=== PATIENT | female | born 1945 | race Caucasian/White ===

== ENCOUNTER 2021-01-23 21:59 | Observation (INO) | payer MEDICARE ==
[~2021-01-23] VITALS: Ht 162.6 cm; Wt 61.7 kg
[~2021-01-23 21:59] MED LIST: ASPI-485 PO; DILT30TA26 PO; ESOM20CA PO; INFL100V IV; METH2.5T PO
[2021-01-23 22:24] VITALS: BP 134/86
[2021-01-23 22:31] LABS: BASOPHIL # 0.1 10^3/uL (0.0-0.1); BASOPHIL % 1.1 % (0.0-0.2); EOSINOPHIL # 0.1 10^3/uL (0.0-0.2); EOSINOPHIL % 1.3 % (0.0-5.0); LYMPHOCYTES # 2.75 10^3/uL1 (1.0-4.8); LYMPHOCYTES % 49.5 % (24.0-44.0); MEAN CORP HGB 29.9 pg (26-34); MONOCYTES # 0.7 10^3/uL (0.3-0.8); MONOCYTES % 12.1 % (5.0-12.0); RED CELL DISTRIBUTION WIDTH 12.4 % (11.5-14.5)
[2021-01-23 22:32] LABS: PLATELET COUNT 56 10^3/uL (150-400)
--- NOTE | 2021-01-23 22:35 | PCM.EKG ---
[facility] Test Date: 2021-01-23 Test Time: 22:30:01 Pat Name: TOM COLE Department: Room: 340 Gender: F Mix Maker: DHRUV : [id number] Requested By: VIRGILIO DELGADILLO Order Number: [id number] Reading MD: Vigrilio DELGADILLO Measurements Intervals [place] Rate: 140 P: -80 NH: 96 QRS: 72 QRSD: 73 T: 266 QT: 305 QTc: 466 Interpretive Statements Sinus or ectopic atrial tachycardia Low voltage, precordial leads Repolarization abnormality, prob rate related Compared to ECG 12/22/2020 09:46:08 Early repolarization now present Sinus rhythm no longer present Atrial premature complex(es) no longer present Electronically Signed On 01-24-2021 10:32:19 CDT by Virgilio DELGADILLO Please click the below link to view image of tracing.
[2021-01-23] MEDS ORDERED: LANOXIN IV STA (22:41)
[2021-01-23] MEDS ORDERED: CARDIZEM IV STA (22:41)
[2021-01-23] MEDS ORDERED: CARDIZEM IV ONE (22:42)
[2021-01-23] MEDS ORDERED: LANOXIN ONE (22:42)
[2021-01-23 22:45] VITALS: BP 151/90
[2021-01-23 22:48] VITALS: BP 119/50
[2021-01-23 22:51] VITALS: BP 100/76
[2021-01-23] MEDS ORDERED: NS 1000ML 1,000 ML ONE (22:52)
[2021-01-23 23:01] VITALS: BP 133/57
--- NOTE | 2021-01-23 23:01 | ER.PDOC ---
General Chief Complaint: Palpitations Stated Complaint: RACING HEART RATE Time seen by MD: 23:00 Source: patient Exam Limitations: no limitations History of Present Illness Initial Comments Palpitations this evening. Patient felt her heart rate running fast. She has A. fib and was admitted last month for A. fib with RVR. She currently takes diltiazem 30 mg 3 times a day. No chest pain or shortness of breath. No other symptoms. No fever or chills. Timing/Duration: 1 hour Quality: fast Activities at Onset: none Associated Symptoms: denies symptoms Prior symptoms/Treatment: Similar symptoms previous, Recenly Seen, Treated by Doctor, Recently Hospitalized Allergies: Coded Allergies: Penicillins (Unverified Allergy, Unknown, ITCHING, RASH, 06/18/15) Home Meds Active Scripts Diltiazem Hcl (CARDIZEM) 30 Mg Tablet, 30 MG PO TID for 30 Days, #90 TAB Prov:YADY SHEN MD 12/22/20 Reported Medications Methotrexate Sodium (METHOTREXATE) 2.5 Mg Tablet, 20 MG PO ONCE WEEKLY, TABLET 06/18/15 Infliximab (REMICADE) 100 Mg Vial, 100 MG IV EVERY 2 MONTHS, VIAL 06/18/15 Esomeprazole Magnesium (NEXIUM) 20 Mg Capsule.dr, 40 MG PO DAILY 06/18/15 Aspirin (ASPIR 81) 81 Mg Tablet.dr, 162 MG PO DAILY 06/18/15 Past Medical History Medical History: arrhythmia, cardiac problems, GERD, other Surgical History: no surgical history Family History Significant Family History: no pertinent family hx Social History Smoking: non-smoker Alcohol Use: none Drug Use: none Constitutional: no symptoms reported EENTM: no symptoms reported Respiratory: no symptoms reported Cardiovascular: see HPI Gastrointestinal: no symptoms reported Genitourinary: no symptoms reported All Other Systems: Reviewed and Negative Physical Exam General Appearance: No Apparent Distress, WD/WN Neck: Non-Tender, Full Range of Motion, Supple, Normal Inspection Respiratory: chest non-tender, lungs clear, normal breath sounds, no respiratory distress, no accessory muscle use Cardiovascular: Normal Peripheral Pulses, No Edema, No Gallop, No JVD, No Murmur, Tachycardia, Irregularly Irregular Gastrointestinal: Normal Bowel Sounds, No Organomegaly, No Pulsatile Mass, Non Tender, Soft Extremities: Normal Range of Motion, Non-Tender, Normal Inspection, No Pedal Edema, No Calf Tenderness, Normal Capillary Refill Neurologic/Psychiatric: mental health case manager II-XII NML as Tested, No Motor/Sensory Deficits, Alert, Normal Mood/Affect, Oriented x 3 Skin: Normal Color, Warm/Dry Results/Orders Results/Orders Orders - VIRGILIO DELGADILLO MD Cbc With Auto Diff (01/23/21 22:15) Comprehensive Metabolic Panel (01/23/21 22:15) Creatine Kinase (01/23/21 22:15) Creatine Kinase Mb (01/23/21 22:15) Troponin I (01/23/21 22:15) Probnp B-Type High Density Press Laborer (01/23/21 22:15) PT (01/23/21 22:15) Partial Thromboplastin Time. (01/23/21 22:15) Xr Chest 1v (01/23/21 22:15) Ekg-Routine (01/23/21 22:15) Diltiazem Hcl (Cardizem) (01/23/21 22:41) Digoxin (Lanoxin) (01/23/21 22:41) Digoxin (Lanoxin) (01/23/21 22:42) Diltiazem Hcl (Cardizem) (01/23/21 22:42) 0.9 % Sodium Chloride (Ns 1000ml) (01/23/21 22:52) Vital Signs Date Time Temp Pulse Resp B/P (MAP) Pulse Ox O2 Delivery O2 Flow Rate FiO2 01/23/21 22:45 143 01/23/21 22:24 98.7 143 18 134/86 (102) 93 Room Air 01/23/21 22:24 98.7 143 18 93 01/23/21 22:24 98.7 143 18 Administered Medications Medications (Trade) Dose Ordered Sig/Rosa Route PRN Reason Start Time Stop Time Status Last Admin Dose Admin Diltiazem HCl (Cardizem) 20 mg STAT STAT IV 01/23/21 22:41 01/23/21 22:42 DC 01/23/21 22:45 20 MG Laboratory Tests Test 01/23/21 22:20 White Blood Count 5.6 10^3/uL (4.5-11.0) Red Blood Count 4.55 10^6/uL (4.00-5.20) Hemoglobin 13.6 g/dL (12.0-15.0) Hematocrit 41.2 % (36.0-46.0) Mean Corpuscular Volume 90.5 fL (78-100) Mean Corpuscular Hemoglobin 29.9 pg (26-34) Mean Corpuscular Hemoglobin Concent 33.0 g/dL (33-36.5) Red Cell Distribution Width 12.4 % (11.5-14.5) Platelet Count 56 10^3/uL (150-400) L Neutrophils (%) (Auto) 36.0 % (41.0-85.0) L Lymphocytes (%) (Auto) 49.5 % (24.0-44.0) H Monocytes (%) (Auto) 12.1 % (5.0-12.0) H Neutrophils # (Auto) 2.0 10^3/uL (1.8-7.7) Lymphocytes # (Auto) 2.75 10^3/uL1 (1.0-4.8) Monocytes # (Auto) 0.7 10^3/uL (0.3-0.8) Absolute Immature Granulocyte (auto 0 10^3 u/L (0-2) Absolute Eosinophils (auto) 0.1 10^3/uL (0.0-0.2) Immature Granulocytes % 0.00 % (0.00-0.50) Eosinophils % 1.3 % (0.0-5.0) Basophils % 1.1 % (0.0-0.2) H Basophils # 0.1 10^3/uL (0.0-0.1) Prothrombin Time 10.8 SEC (9.6-12.0) Prothrombin Time INR (Non-Therap) 1.0 Activated Partial Thromboplast Time 21.5 SEC (24.67-30.72) Progress Progress Patient given 20 mg of Cardizem and 0.25 digoxin both IV and her heart rate came down in the 70s and 80s. It will occasionally go up to low 100s. She was observed overnight and reevaluated in the morning and possibly go home. EKG/XRAY/CT/US EKG: no ST T wave changes EKG Comments: HR 140, A fib with RVR XRAY: chest (No active disease) ER DEPART Departure Time of Disposition: 23:54 Disposition: 01 HOME / SELF CARE / HOMELESS Impression: Primary Impression: Atrial fibrillation with RVR Additional Impression: Atrial fibrillation/flutter Condition: Improved Referrals: LIDIA LARES NEGOTIATIONS DIRECTOR (PCP) PRIMARY CARE PROVIDER Comments Admitted to Dr. Richter Duration or Time Spent with Pa: 45 min Critical Care Note Total Time (mins): 45 Problem Qualifiers VIRGILIO DELGADILLO MD Jan 23, 2021 23:01
[2021-01-23] MEDS ORDERED: NS 1000ML 1,000 ML IV STA (23:03)
--- NOTE | 2021-01-23 23:14 | DIREP ---
PROCEDURE:CHEST 1 VIEW COMPARISON:[facility], CR, XRAY CHEST SINGLE VW, 12/21/2020, 07:28 PM. INDICATIONS:Palpitations FINDINGS: LUNGS/PLEURA:No significant pulmonary parenchymal abnormalities. No effusions. VASCULATURE:Normal. Unremarkable pulmonary vasculature. CARDIAC:Normal. No cardiac silhouette abnormality or cardiomegaly. MEDIASTINUM:Normal. No visible mass or adenopathy. BONES:Normal. No fracture or visible bony lesion. OTHER:Negative. CONCLUSION:Normal examination. Dictated by: Jesus David MD on 01/23/2021 at 11:12 PM
[2021-01-23 23:15] LABS: ALANINE AMINOTRANSFERASE(ML) 22 U/L (12-78); ALKALINE PHOSPHATASE 85 U/L (50-136); ASPARTATE AMINO TRANSFERASE 22 U/L (0-35); CALCIUM 9.7 mg/dL (8.4-10.5); CARBON DIOXIDE 26.8 mmol/L (20.0-32); GLUCOSE 125 mg/dL (70-110)
[2021-01-24] MEDS ORDERED: ABAT250V2 IV (00:02)
[2021-01-24 00:36] VITALS: BP 128/92
[2021-01-24 03:58] VITALS: BP 123/77
--- NOTE | 2021-01-24 07:00 | PCM.EKG ---
[facility] Test Date: 2021-01-24 Test Time: 06:58:34 Pat Name: TOM COLE Department: Room: 340 A Gender: F Brand Advocate: EMERSON : 1945 Requested By: YI WATSON Order Number: [id number] Reading MD: Measurements Intervals [place] Rate: 56 P: 79 NH: 163 QRS: 51 QRSD: 97 T: 18 QT: 415 QTc: 401 Interpretive Statements Sinus rhythm Low voltage, precordial leads Compared to ECG 01/23/2021 22:30:01 Early repolarization no longer present Please click the below link to view image of tracing.
[2021-01-24 07:56] VITALS: BP 127/76
--- NOTE | 2021-01-24 08:56 | PCM.HP ---
HISTORY & PHYSICAL HISTORY & PHYSICAL DATE OF ADMISSION: January 23, 2021 CHIEF COMPLAINT: Increase heart rate During blood pressure measurement At home HISTORY OF PRESENT ILLNESS: 75-year-old female with previous history of atrial fibrillation rheumatoid arthritis thrombocytopenia was apparently in her usual health when she asked routine she was checking her blood pressure with her home BP instrument and found to have her heart rate was 144 therefore came to the ER yuri adames denied any dizziness lightheadedness chest pain but had mild shortness of breath and in the ER patient was found to have elevated heart rate was given IV Cardizem and digoxin patient symptoms resolved and the patient was admitted for overnight observation patient claims that he never noticed this found before but she is remained asymptomatic except mild shortness of breath during tachycardia denies any headache nausea vomiting lateralizing weakness sore throat cough wheezing denies any chest pain palpitation denies any abdominal pain no change in bowel habit no dysuria hematuria fever chills or rigors no weakness of the limbs ALLERGIES: Penicillin CURRENT MEDICATIONS: Aspirin 162 mg Cardizem 30 mg 3 times a day Orencia IV injection 250 mg every month PAST MEDICAL HISTORY: Rheumatoid arthritis, thrombocytopenia, atrial fibrillation, cataract extraction and lens implantation SOCIAL HISTORY: Denies smoking alcohol occasionally and exercise regularly FAMILY HISTORY: Mother had Alzheimer disease and father had prostate cancer REVIEW OF SYSTEMS: Gradually gained about 10 pounds over 1 year, no headache no blurry vision no chest pain shortness of breath was mild during tachycardia and no effort angina or effort dyspnea no change in appetite or bowel habits no urinary symptoms no fever chills or rigors no lateralizing weakness all system reviewed and negative except mentioned above VITAL SIGNS: Vital Signs Date Time Temp Pulse Resp B/P (MAP) Pulse Ox O2 Delivery O2 Flow Rate FiO2 01/24/21 07:56 97.6 62 19 127/76 (93) 95 01/24/21 03:58 98.7 85 18 123/77 (92) 94 01/24/21 01:08 Room Air 01/24/21 00:36 98.1 116 18 128/92 (104) 96 Room Air 01/23/21 23:01 87 18 133/57 (82) 96 Room Air 01/23/21 22:51 90 18 100/76 (84) 95 Room Air 01/23/21 22:48 103 18 119/50 (73) 96 Room Air 01/23/21 22:45 98.7 143 18 151/90 (110) 93 Room Air 01/23/21 22:45 143 01/23/21 22:24 98.7 143 18 134/86 (102) 93 Room Air 01/23/21 22:24 98.7 143 18 93 01/23/21 22:24 98.7 143 18 PHYSICAL EXAMINATION: General: Awake alert oriented no acute distress HEENT: Pupil round react light mucous membrane is moist anicteric sclera neck supple no JVD no carotid bruit noted Lungs: Air entry symmetrical no rails rhonchi or wheezes heard Heart: Regular rate and rhythm no murmur or gallop noted Abdomen soft not distended no guarding no organomegaly no masses felt Extremities: Moves all 4 limbs muscle power 5/5 in all 4 limbs WARP DYEING VAT TENDER cranial nerves grossly intact LABORATORY DATA: Laboratory Tests Test 01/23/21 22:20 White Blood Count 5.6 10^3/uL (4.5-11.0) Red Blood Count 4.55 10^6/uL (4.00-5.20) Hemoglobin 13.6 g/dL (12.0-15.0) Hematocrit 41.2 % (36.0-46.0) Mean Corpuscular Volume 90.5 fL (78-100) Mean Corpuscular Hemoglobin 29.9 pg (26-34) Mean Corpuscular Hemoglobin Concent 33.0 g/dL (33-36.5) Red Cell Distribution Width 12.4 % (11.5-14.5) Platelet Count 56 10^3/uL (150-400) Neutrophils (%) (Auto) 36.0 % (41.0-85.0) Lymphocytes (%) (Auto) 49.5 % (24.0-44.0) Monocytes (%) (Auto) 12.1 % (5.0-12.0) Neutrophils # (Auto) 2.0 10^3/uL (1.8-7.7) Lymphocytes # (Auto) 2.75 10^3/uL1 (1.0-4.8) Monocytes # (Auto) 0.7 10^3/uL (0.3-0.8) Absolute Immature Granulocyte (auto 0 10^3 u/L (0-2) Absolute Eosinophils (auto) 0.1 10^3/uL (0.0-0.2) Immature Granulocytes % 0.00 % (0.00-0.50) Eosinophils % 1.3 % (0.0-5.0) Basophils % 1.1 % (0.0-0.2) Basophils # 0.1 10^3/uL (0.0-0.1) Prothrombin Time 10.8 SEC (9.6-12.0) Prothrombin Time INR (Non-Therap) 1.0 Activated Partial Thromboplast Time 21.5 SEC (24.67-30.72) Sodium Level 146 mmol/L (132-145) Potassium Level 3.4 mmol/L (3.6-5.2) Chloride Level 108.0 mmol/L (96-109) Carbon Dioxide Level 26.8 mmol/L (20.0-32) Anion Gap 14.6 Blood Urea Nitrogen 14 mg/dL (7-18) Creatinine 1.02 mg/dL (0.59-1.40) Estimated GFR () 64.1 (>/=60) Est GFR (CKD-EPI)(Non-Afr Mauritanian) 53.0 (>/=60) BUN/Creatinine Ratio 13.0 Glucose Level 125 mg/dL (70-110) Calcium Level 9.7 mg/dL (8.4-10.5) Total Bilirubin 0.8 mg/dL (0.2-1.0) Aspartate Amino Transf (AST/SGOT) 22 U/L (0-35) Alanine Aminotransferase (ALT/SGPT) 22 U/L (12-78) Alkaline Phosphatase 85 U/L (50-136) Total Creatine Kinase 113 U/L (26-192) Creatine Kinase MB 1.2 ng/mL (0.5-3.6) Troponin I < 0.02 ng/mL (0.00-0.05) Pro-B-Type Natriuretic Peptide 393 pg/mL (0-125) Total Protein 7.4 g/dL (6.4-8.2) Albumin 3.9 g/dL (3.4-5.0) Globulin 3.5 Albumin/Globulin Ratio 1.114 IMAGING: PROCEDURE:CHEST 1 VIEW COMPARISON:[facility], CR, XRAY CHEST SINGLE VW, 12/21/2020, 07:28 PM. INDICATIONS:Palpitations FINDINGS: LUNGS/PLEURA:No significant pulmonary parenchymal abnormalities. No effusions. VASCULATURE:Normal. Unremarkable pulmonary vasculature. CARDIAC:Normal. No cardiac silhouette abnormality or cardiomegaly. MEDIASTINUM:Normal. No visible mass or adenopathy. BONES:Normal. No fracture or visible bony lesion. OTHER:Negative. CONCLUSION:Normal examination. Dictated by: Jesus David MD on 01/23/2021 at 11:12 PM SUMMARY: 75-year-old history female with previous history of atrial fibrillation rheumatoid arthritis and thrombocytopenia came to the ER with a complaint of elevated pulse rate found to have atrial fibrillation with RVR was given IV diltiazem 20 mg and started on digoxin and patient heart rate was well controlled was admitted for overnight observation patient remained stable, we will consult ammonium nitrate neutralizer for consideration of starting patient on controlled release Cardizem 120 mg daily and her chads vascular score is 2 to obtain recommendation regarding anticoagulation and once treatment is finalized patient can be discharged today ASSESSMENT/PLAN: A. fib with RVR, Chads vascular score is 2 Rheumatoid arthritis Thrombocytopenia Hypokalemia Plan: Replace potassium, check magnesium levelConsult ammonium nitrate neutralizer Cardizem CD 120 mg daily if okay with ammonium nitrate neutralizer and discharge planning after ammonium nitrate neutralizer recommendation YI WATSON MD Jan 24, 2021 08:56
[2021-01-24] MEDS ORDERED: EFFER-K 10 MEQ TABLET EFF PO SCH (09:00)
[2021-01-24 11:40] VITALS: BP 124/63
[2021-01-24 15:19] VITALS: BP 128/67
--- NOTE | 2021-01-24 16:19 | PRM.CONS ---
History of Present Illness Reason for Consultation: Atrial fibrillation History of Present Illness This is a 75-year-old female who presented to the emergency room after noticing on her blood pressure machine that her heart rate was high. She denied any symptoms other than shortness of breath.Last month she was hospitalized for atrial fibrillation with rapid ventricular response. Past Medical History Musculoskeletal: Other Past Social History Smoke: No Alcohol: none Travel Hx EBOLA RISK:Travel to/contact w: No Review of Systems Allergies: Coded Allergies: Penicillins (Unverified Allergy, Unknown, ITCHING, RASH, 06/18/15) Scheduled Abatacept/Maltose (Orencia 250 Mg Vial), 250 MG IV OT, (Reported) Aspirin (Aspir 81), 162 MG PO DAILY, (Reported) Diltiazem Hcl (Cardizem), 30 MG PO TID Discontinued Medications Esomeprazole Magnesium (Nexium), 40 MG PO DAILY, (Reported) Discontinued Reason: No Longer Taking Infliximab (Remicade), 100 MG IV EVERY 2 MONTHS, (Reported) Discontinued Reason: No Longer Taking Methotrexate Sodium (Methotrexate), 20 MG PO ONCE WEEKLY, (Reported) Discontinued Reason: No Longer Taking VTE VTE Risk Total Score: 2 VTE Risk Score VTE Risk: Score 0-1 = Low Risk (Aggressive mobilization; early ambulation; no VTE prophylaxis required) Score 2: Moderate Risk (Intermittent/Pneumatic Compression Device OR Lovenox/Heparin/Coumadin) Score 3-4: High Risk (Intermittent/Pneumatic Compression Device AND Lovenox/Heparin/Coumadin) Score > or =5: Highest Risk (Intermittent/Pneumatic Compression Device AND Lovenox/Heparin/Coumadin) Antico:Hep/LMWH/Coum/Xarelto: No Mechanical device ordered: Yes Reasons not ordering prophylax: Plt cnt below ref range VTE VTE Present on Admission: No Currently receiving anticoagul: No VTE Risk Total Score: 2 Antico:Hep/LMWH/Coum/Xarelto: No Mechanical device ordered: Yes Exam Vital Signs Vital Signs Date Time Temp Pulse Resp B/P (MAP) Pulse Ox O2 Delivery O2 Flow Rate FiO2 01/24/21 15:19 98.1 63 18 128/67 (87) 94 01/24/21 14:31 Room Air NIMO FARLEY APRN FOOD ADVISER Jan 24, 2021 16:19
--- NOTE | 2021-01-24 16:28 | PRM.CONS ---
History of Present Illness Reason for Consultation: atrial fibrillation History of Present Illness This is a 75-year-old female who presented to the emergency room after noticing on her blood pressure machine that her heart rate was high. Last month she was newly diagnosed with atrial fibrillation and at the time also had rapid ventricular response. She has been taking Cardizem 30 mg 3 times daily but does admit to forgetting the noon dose often. She denied any symptoms other than mild shortness of breath with this episode. Initial EKG this visit showed Atrial fibrillation with a rate of 140.She was given IV Cardizem and Digoxin. She has since converted back to sinus rhythm with a rate of 60 as of this morning. Cardiology service consult was placed for evaluation. She currently denies any chest pain, shortness of breath or palpitations. Past Medical History Cardiovascular: AFIB, Other (chronic thrombocytopenia ) Musculoskeletal: Other (rheumatoid arthritis ) Past Surgical History: No pertinent hx Past Social History Smoke: No Alcohol: none Lives: with Family Domestic Violence: Neg Travel Hx EBOLA RISK:Travel to/contact w: No Is pt experiencing any Ebola s: No Review of Systems Allergies: Coded Allergies: Penicillins (Unverified Allergy, Unknown, ITCHING, RASH, 06/18/15) Scheduled Abatacept/Maltose (Orencia 250 Mg Vial), 250 MG IV OT, (Reported) Aspirin (Aspir 81), 162 MG PO DAILY, (Reported) Diltiazem Hcl (Cardizem), 60 MG PO BID Discontinued Medications Diltiazem Hcl (Cardizem), 30 MG PO TID Discontinued Reason: Discontinue Esomeprazole Magnesium (Nexium), 40 MG PO DAILY, (Reported) Discontinued Reason: No Longer Taking Infliximab (Remicade), 100 MG IV EVERY 2 MONTHS, (Reported) Discontinued Reason: No Longer Taking Methotrexate Sodium (Methotrexate), 20 MG PO ONCE WEEKLY, (Reported) Discontinued Reason: No Longer Taking VTE VTE Risk Total Score: 2 VTE Risk Score VTE Risk: Score 0-1 = Low Risk (Aggressive mobilization; early ambulation; no VTE prophylaxis required) Score 2: Moderate Risk (Intermittent/Pneumatic Compression Device OR Lovenox/Heparin/Coumadin) Score 3-4: High Risk (Intermittent/Pneumatic Compression Device AND Lovenox/Heparin/Coumadin) Score > or =5: Highest Risk (Intermittent/Pneumatic Compression Device AND Lovenox/Heparin/Coumadin) Antico:Hep/LMWH/Coum/Xarelto: No Mechanical device ordered: Yes Reasons not ordering prophylax: Plt cnt below ref range VTE VTE Present on Admission: No Currently receiving anticoagul: No VTE Risk Total Score: 2 Antico:Hep/LMWH/Coum/Xarelto: No Mechanical device ordered: Yes Exam Vital Signs Vital Signs Date Time Temp Pulse Resp B/P (MAP) Pulse Ox O2 Delivery O2 Flow Rate FiO2 01/24/21 15:19 98.1 63 18 128/67 (87) 94 01/24/21 14:31 Room Air General Appearance: Alert, Oriented X3 HEENT: PERRLA Respiratory: Clear to auscultation Cardiovascular: Regular rate, Normal S1, Normal S2 Abdominal: Normal bowel sounds, Soft Extremities: No clubbing, No cyanosis, No edema, Normal pulses Skin: No rash, No breakdown, No lesions Neuro: Normal gait, Normal speech Psych/Mental Status: Mental status NL Assessment/Plan Assessment/Plan Assessment/Plan 1. Atrial fibrillation - currently converted to normal sinus rhythm 2. [id number] score of 2 3. Chronic thrombocytopenia 4. Rheumatoid arthritis 5. LVEF of 60-65 % on 2d echo done December 2020 Plan This is a 75-year-old female who presented to the Emergency room after noticing on her blood pressure machine that her heart rate was high.Upon presentation to the emergency room she was noted to be in atrial fibrillation with a rate of 140 . At that time she was given IV Cardizem and digoxin. She is currently on Cardizem p.o. 30 mg 3 times daily for rate control at home. However, she admits to missing doses often. She does have a CHADS2-VASc score of 2; however with her platelet count of 56,000 she is not a candidate for oral anticoagulation. She sees a digital experience manager in [place] for treatment of her low platelets. Troponin is negative X3. TSH is with normal limits. Aspirin 162 mg may be continued. I will also start her on Cardizem 60 mg twice daily. No further cardiovascular work-up is necessary. She will need to follow up in the outpatient setting for a cardiac stress test to rule out an ischemic substrate. Patient seen and examined by me. I agree with assessment and plan as stated above. NIMO FARLEY APRN RUNNER MAN Jan 24, 2021 16:28 LES SEQUEIRA DO Jan 24, 2021 20:42
[2021-01-24] MEDS ORDERED: CARDIZEM ONE (17:48)
[2021-01-24] MEDS ORDERED: DILT60TA3 PO (18:38)
--- NOTE | 2021-01-24 18:42 | PRM.DC ---
Subjective Subjective Date of Discharge: Jan 24, 2021 Time of Request to Discharge: 18:38 Subjective Feeling better no chest pain no dizziness no lightheadedness tolerating p.o. intake well Exam Vital Signs Vital Signs Date Time Temp Pulse Resp B/P (MAP) Pulse Ox O2 Delivery O2 Flow Rate FiO2 01/24/21 17:51 63 128/67 01/24/21 15:19 98.1 18 94 01/24/21 14:31 Room Air General Appearance: Alert, Oriented X3, Cooperative, No acute distress HEENT: Atraumatic, PERRLA, EOMI, Mucous membr. moist/pink Respiratory: Clear to auscultation, Normal air movement Cardiovascular: Normal S1, Normal S2 Abdominal: Normal bowel sounds, Soft, No tenderness Extremities: No clubbing, No cyanosis Neuro: Normal gait, Normal speech, Strength at 5/5 X4 ext Psych/Mental Status: Mental status NL, Mood NL, Other VTE VTE Risk Total Score: 2 VTE Risk Score VTE Risk: Score 0-1 = Low Risk (Aggressive mobilization; early ambulation; no VTE prophylaxis required) Score 2: Moderate Risk (Intermittent/Pneumatic Compression Device OR Lovenox/Heparin/Coumadin) Score 3-4: High Risk (Intermittent/Pneumatic Compression Device AND Lovenox/Heparin/Coumadin) Score > or =5: Highest Risk (Intermittent/Pneumatic Compression Device AND Lovenox/Heparin/Coumadin) Antico:Hep/LMWH/Coum/Xarelto: No Mechanical device ordered: Yes Reasons not ordering prophylax: Plt cnt below ref range Objective Vitals and I/O Vital Sign - Last 24 Hours 01/23/21 01/23/21 01/23/21 01/23/21 22:24 22:24 22:24 22:45 Temp 98.7 98.7 98.7 Pulse 143 143 143 143 Resp 18 18 18 B/P (MAP) 134/86 (102) Pulse Ox 93 93 O2 Delivery Room Air 01/23/21 01/23/21 01/23/21 01/23/21 22:45 22:48 22:51 23:01 Temp 98.7 Pulse 143 103 90 87 Resp 18 18 18 18 B/P (MAP) 151/90 (110) 119/50 (73) 100/76 (84) 133/57 (82) Pulse Ox 93 96 95 96 O2 Delivery Room Air Room Air Room Air Room Air 01/24/21 01/24/21 01/24/21 01/24/21 00:36 01:08 03:58 07:56 Temp 98.1 98.7 97.6 Pulse 116 85 62 Resp 18 18 19 B/P (MAP) 128/92 (104) 123/77 (92) 127/76 (93) Pulse Ox 96 94 95 O2 Delivery Room Air Room Air 01/24/21 01/24/21 01/24/21 01/24/21 11:40 14:31 15:19 17:51 Temp 97.8 98.1 Pulse 61 63 63 Resp 18 18 B/P (MAP) 124/63 (83) 128/67 (87) 128/67 Pulse Ox 94 94 O2 Delivery Room Air Intake and Output 01/24/21 06:59 Output Total 400 ml Balance -400 ml General: Alert, Oriented X3 HEENT: PERRLA Lungs: Clear to auscultation Heart: Regular rate, Normal S1, Normal S2 Abdomen: Normal bowel sounds, Soft Extremities: No clubbing, No cyanosis, No edema, Normal pulses Neuro: Normal gait, Normal speech Psych/Mental Status: Mental status NL All Results(Lab/Rad) Laboratory Tests Test 01/23/21 22:20 White Blood Count 5.6 10^3/uL Red Blood Count 4.55 10^6/uL Hemoglobin 13.6 g/dL Hematocrit 41.2 % Mean Corpuscular Volume 90.5 fL Mean Corpuscular Hemoglobin 29.9 pg Mean Corpuscular Hemoglobin Concent 33.0 g/dL Red Cell Distribution Width 12.4 % Platelet Count 56 10^3/uL Neutrophils (%) (Auto) 36.0 % Lymphocytes (%) (Auto) 49.5 % Monocytes (%) (Auto) 12.1 % Neutrophils # (Auto) 2.0 10^3/uL Lymphocytes # (Auto) 2.75 10^3/uL1 Monocytes # (Auto) 0.7 10^3/uL Absolute Immature Granulocyte (auto 0 10^3 u/L Absolute Eosinophils (auto) 0.1 10^3/uL Immature Granulocytes % 0.00 % Eosinophils % 1.3 % Basophils % 1.1 % Basophils # 0.1 10^3/uL Prothrombin Time 10.8 SEC Prothrombin Time INR (Non-Therap) 1.0 Activated Partial Thromboplast Time 21.5 SEC Sodium Level 146 mmol/L Potassium Level 3.4 mmol/L Chloride Level 108.0 mmol/L Carbon Dioxide Level 26.8 mmol/L Anion Gap 14.6 Blood Urea Nitrogen 14 mg/dL Creatinine 1.02 mg/dL Estimated GFR () 64.1 Est GFR (CKD-EPI)(Non-Afr [place]) 53.0 BUN/Creatinine Ratio 13.0 Glucose Level 125 mg/dL Calcium Level 9.7 mg/dL Magnesium Level 1.9 mg/dL Total Bilirubin 0.8 mg/dL Aspartate Amino Transf (AST/SGOT) 22 U/L Alanine Aminotransferase (ALT/SGPT) 22 U/L Alkaline Phosphatase 85 U/L Total Creatine Kinase 113 U/L Creatine Kinase MB 1.2 ng/mL Troponin I < 0.02 ng/mL Pro-B-Type Natriuretic Peptide 393 pg/mL Total Protein 7.4 g/dL Albumin 3.9 g/dL Globulin 3.5 Albumin/Globulin Ratio 1.114 Current Medications Medications (Trade) Dose Ordered Sig/Rosa Route PRN Reason Start Time Stop Time Status Last Admin Dose Admin Diltiazem HCl (Cardizem) 20 mg STAT STAT IV 01/23/21 22:41 01/23/21 22:42 DC 01/23/21 22:45 Digoxin (Lanoxin) 250 mcg STAT STAT IV 01/23/21 22:41 01/23/21 22:42 DC 01/23/21 23:02 Digoxin (Lanoxin) 500 mcg STK-MED ONCE .ROUTE 01/23/21 22:42 01/23/21 22:42 DC Diltiazem HCl (Cardizem) 50 mg STK-MED ONCE IV 01/23/21 22:42 01/23/21 22:42 DC Sodium Chloride 1,000 ml @ ud STK-MED ONCE .ROUTE 01/23/21 22:52 01/23/21 22:52 DC Sodium Chloride 1,000 ml @ 1,200 mls/hr Q50M STAT IV 01/23/21 23:03 01/23/21 23:52 DC 01/23/21 23:03 Potassium Bicarbonate (Effer-K 10 Meq Tablet Eff) 40 meq OT PO 01/24/21 09:00 02/23/21 08:59 01/24/21 13:34 Diltiazem HCl (Cardizem) 30 mg STK-MED ONCE .ROUTE 01/24/21 17:48 01/24/21 17:48 DC Diltiazem HCl (Cardizem) 30 mg TID PO 01/24/21 21:00 02/23/21 20:59 UNV 01/24/21 17:51 Diltiazem HCl (Cardizem) 60 mg BID PO 01/24/21 21:00 02/23/21 20:59 UNV Medication Reconciliation Scheduled Abatacept/Maltose (Orencia 250 Mg Vial), 250 MG IV OT, (Reported) Aspirin (Aspir 81), 162 MG PO DAILY, (Reported) Diltiazem Hcl (Cardizem), 30 MG PO TID Diltiazem Hcl (Cardizem), 60 MG PO BID Discontinued Medications Esomeprazole Magnesium (Nexium), 40 MG PO DAILY, (Reported) Discontinued Reason: No Longer Taking Infliximab (Remicade), 100 MG IV EVERY 2 MONTHS, (Reported) Discontinued Reason: No Longer Taking Methotrexate Sodium (Methotrexate), 20 MG PO ONCE WEEKLY, (Reported) Discontinued Reason: No Longer Taking Plan Assessment 1.Atrial fibrillation with rapid ventricular rate resolved after IV Cardizem, cardiology service evaluated and increase the Cardizem to 60 mg p.o. twice daily 2. Rheumatoid arthritis 3. Hypokalemia replaced 4. Chronic thrombocytopenia Plan My Orders - YI WATSON MD Procedure Category Date Status Time Regular Diet DIET 01/24/21 Transmitted Lunch Ekg-Routine EKG 01/24/21 Complete 06:50 Potassium PHA 01/24/21 In Process Bicarbonate/Cit Ac 09:00 Magnesium LAB 01/24/21 Complete 08:58 On Site Manager Consult CONS 01/24/21 Transmitted 09:08 Diltiazem Hcl PHA 01/24/21 Logged (Cardizem) 21:00 Diltiazem Hcl PHA 01/24/21 Complete (Cardizem) 17:48 Discharge DISCHARGE 01/24/21 Transmitted 18:33 Patient was evaluated and drug by the fast food fry cook and recommended increasing Cardizem to 60 mg twice daily and still to hold anticoagulant as he already discussed with the patient's interventional pain physician and only is to continue aspirin 162 mg p.o. daily and follow-up with PCP and art consultant as instructed YI WATSON MD Jan 24, 2021 18:42
[2021-01-24 19:52] VITALS: BP 128/67
--- NOTE | 2021-01-24 19:59 | NUR ---
DISCHARGE PT GIVEN DISCHARGE INSTRUCTIONS. INSTRUCTED ON MAKING AN APPT WITH DR CORNELIUS IN AM. INSTRUCTED NOT TO TAKE CARDIZEM TONIGHT. IV REMOVED ASEPTIC TECHNIQUE; CATHETER INTACT. TELE REMOVED. PT IN NO DISTRESS. WALKED PT OFF UNIT AND GOT IN CAR WITH SPOUSE. RELINQUISHED CARE AT THIS TIME.
[2021-01-24] MEDS ORDERED: CARDIZEM PO SCH ×2 (21:00)
== END 2021-01-24 20:38 | disposition home or self-care (01) ==
LOC: ER 21:59 → MS 01-24 00:03 → EDPENDDISTM 01-24 19:50
PROVIDERS: ADMIT Internal Medicine; ATTEND Internal Medicine
DX: I48.20 Chronic atrial fibrillation, unspecified (principal); I48.92 Unspecified atrial flutter; M06.9 Rheumatoid arthritis, unspecified; E87.6 Hypokalemia; D69.6 Thrombocytopenia, unspecified; K21.9 Gastro-esophageal reflux disease without esophagitis; Z88.0 Allergy status to penicillin; Z79.899 Other long term (current) drug therapy
CPT/HCPCS: 36415; 71045; 80053; 82550; 82553; 83735; 83880; 84484; 85025; 85610; 85730; 93005 ×2; 96361; 96374; 96375; 99291; G0378 ×2; J1160; J3490; J7030

== ENCOUNTER → 2022-04-23 | Outpatient (CLI) | payer MEDICARE ==
[~2022-04-23] MED LIST changes: +ABAT250V2 IV; +DILT60TA3 PO
== END | disposition home or self-care (01) ==
LOC: NPLAB 18:15
PROVIDERS: ATTEND Nurse Practitioner Family
DX: R30.0 Dysuria (principal); R35.0 Frequency of micturition
CPT/HCPCS: 87077; 87086; 87186